=== PATIENT | male | born 1960 | race Caucasian/White ===

== ENCOUNTER → 2017-02-14 | Outpatient (REF) | payer OTHER, BC ==
[2017-02-14 13:16] LABS: BLOOD UREA NITROGEN 14 MG/DL (7-18); CREATININE FOR GFR 1.13 MG/DL (0.70-1.30); GLOMERULAR FILTRATION RATE > 60.0 (>56)
== END ==
LOC: M LABDRAW1 12:26
PROVIDERS: ATTEND Orthopaedic Surgery
DX: Z79.899 Other long term (current) drug therapy (principal)

== ENCOUNTER → 2017-08-19 | Outpatient (REF) | payer OTHER ==
[2017-08-19 15:41] LABS: BASO # 0.1 10^3/uL (0.0-0.2); BASO % 1.1 % (0.0-1.0); EOS # 0.2 10^3/uL (0.0-0.50); EOS % 2.9 % (0.0-3.0); IMMATURE GRANULOCYTE % 0.1 % (0-0); LYMPH # 1.9 10^3/uL (1.5-4.5); LYMPH % 24.5 % (24.0-44.0); MEAN CORPUSCULAR HEMOGLOBIN 28.3 pg (27.0-33.0); MEAN CORPUSCULAR HGB CONC 34.8 g/dl (32.0-36.5); MEAN CORPUSCULAR VOLUME 81.4 fl (80.0-96.0); MONO # 0.5 10^3/uL (0.0-0.8); MONO % 6.7 % (0.0-5.0); NEUTROPHILS # 5.1 10^3/uL (1.8-7.7); NEUTROPHILS % 64.7 % (36.0-66.0); PLATELET COUNT, AUTOMATED 262 10^3/uL (150-450); RED CELL DISTRIBUTION WIDTH 13.7 % (11.5-14.5); WHITE BLOOD COUNT 7.9 10^3/uL (4.0-10.0)
[2017-08-19 15:59] LABS: ALBUMIN 3.7 GM/DL (3.2-5.2); ALBUMIN/GLOBULIN RATIO 1.19 (1.00-1.93); ALKALINE PHOSPHATASE 98 U/L (45-117); ALT/SGPT 38 U/L (12-78); ANION GAP 8 MEQ/L (8-16); AST/SGOT 18 U/L (7-37); BILIRUBIN,TOTAL 0.4 MG/DL (0.2-1.0); BLOOD UREA NITROGEN 16 MG/DL (7-18); CALCIUM LEVEL 8.1 MG/DL (8.5-10.1); CARBON DIOXIDE LEVEL 27 MEQ/L (21-32); CHLORIDE LEVEL 109 MEQ/L (98-107); CREATININE FOR GFR 0.98 MG/DL (0.70-1.30); GLOMERULAR FILTRATION RATE > 60.0 (>56); GLUCOSE, FASTING 113 MG/DL (70-105); POTASSIUM SERUM 3.7 MEQ/L (3.5-5.1); SODIUM LEVEL 144 MEQ/L (136-145); TOTAL PROTEIN 6.8 GM/DL (6.4-8.2)
== END ==
LOC: M LABDRAW1 15:28
DX: M18.9 Osteoarthritis of first carpometacarpal joint, unspecified (principal)

== ENCOUNTER 2018-06-23 13:49 | Day surgery (SDC) | payer BC ==
[~2018-06-23 13:49] MED LIST: LIDOCAINE 2% INJ 100 MG/5 ML SDV (FOR ANES.) As Ordered; PROPOFOL 200 MG/20 ML VIAL As Ordered
[2018-06-23] MEDS: NS 1,000 ML IV (15:00)
[2018-06-23] MEDS ORDERED: fentaNYL 100 MCG/2 ML INJECTION (J3010) As Ordered (16:18)
== END 2018-06-23 17:08 | disposition home or self-care (01) ==
LOC: M OPP 13:49
DX: K22.2 Esophageal obstruction (principal); R13.10 Dysphagia, unspecified; R12 Heartburn; I10 Essential (primary) hypertension; K21.9 Gastro-esophageal reflux disease without esophagitis; M54.5 Low back pain; N42.9 Disorder of prostate, unspecified; Z79.899 Other long term (current) drug therapy; Z88.0 Allergy status to penicillin
CPT/HCPCS: 43249

== ENCOUNTER 2021-11-04 12:33 | Day surgery (SDC) | payer BC ==
[~2021-11-04] VITALS: Ht 175.3 cm; Wt 80.5 kg
[~2021-11-04 12:33] MED LIST changes: -LIDOCAINE 2% INJ 100 MG/5 ML SDV (FOR ANES.) As Ordered; +MELO15TA28 PO; +PRIL20TA2 PO; -PROPOFOL 200 MG/20 ML VIAL As Ordered
[2021-11-04] MEDS ORDERED: GLUCAGON INJ 1MG VIAL IV STA (16:01)
[2021-11-04] MEDS ORDERED: NS 1,000 ML IV SCH (17:45)
[2021-11-04] MEDS: NS 1,000 ML IV SCH ×2 (18:00→18:29)
[2021-11-04] MEDS ORDERED: SILD20TA11 PO (18:23)
[2021-11-04] MEDS ORDERED: HOME MED LIST COMPLETE! XX SCH (18:25)
[2021-11-04 18:50] LABS: BASO # 0.1 10^3/uL (0.0-0.2); BASO % 0.9 % (0.0-1.0); EOS # 0.2 10^3/uL (0.0-0.5); EOS % 1.7 % (0.0-3.0); HEMATOCRIT 45.8 % (42.0-52.0); HEMOGLOBIN 15.9 g/dl (13.5-17.5); LYMPH # 1.3 10^3/uL (1.5-5.0); LYMPH % 11.5 % (24.0-44.0); MEAN CORPUSCULAR HEMOGLOBIN 28.3 pg (27.0-33.0); MEAN CORPUSCULAR HGB CONC 34.7 g/dl (32.0-36.5); MEAN CORPUSCULAR VOLUME 81.6 fl (80.0-96.0); MONO # 0.5 10^3/uL (0.0-0.8); MONO % 4.4 % (2.0-8.0); NEUTROPHILS # 9.1 10^3/uL (1.5-8.5); NEUTROPHILS % 81.1 % (36.0-66.0); PLATELET COUNT, AUTOMATED 273 10^3/uL (150-450); RED BLOOD COUNT 5.61 10^6/uL (4.30-6.10); WHITE BLOOD COUNT 11.2 10^3/uL (4.0-10.0)
[2021-11-04 19:11] LABS: ALBUMIN 3.8 GM/DL (3.2-5.2); ALT/SGPT 38 U/L (12-78); BILIRUBIN,TOTAL 1.3 MG/DL (0.2-1.0); BLOOD UREA NITROGEN 20 MG/DL (7-18); CALCIUM LEVEL 9.2 MG/DL (8.8-10.2); CARBON DIOXIDE LEVEL 27 MEQ/L (21-32); CHLORIDE LEVEL 111 MEQ/L (98-107); CREATININE FOR GFR 0.96 MG/DL (0.70-1.30); GLOMERULAR FILTRATION RATE > 60.0 (>49); GLUCOSE, FASTING 78 MG/DL (70-100); SODIUM LEVEL 144 MEQ/L (136-145); TOTAL PROTEIN 6.9 GM/DL (6.4-8.2)
[2021-11-04] MEDS ORDERED: MIDAZOLAM INJ 2MG/2ML VIAL (J2250 PER 1MG) As Ordered ONE (20:04)
[2021-11-04] MEDS ORDERED: propofoL 200 MG/20 ML VIAL As Ordered ONE (20:04)
[2021-11-04] MEDS ORDERED: fentaNYL 100 MCG/2 ML INJECTION As Ordered ONE (20:04)
[2021-11-04] MEDS ORDERED: SUCCINYLCHOLINE 100 MG/5 ML SYRINGE (J0330) As Ordered ONE (20:04)
[2021-11-04] MEDS ORDERED: LIDOCAINE 2% 100MG/5ML SDV (FOR ANES.) As Ordered ONE (20:04)
[2021-11-04] MEDS ORDERED: dexameTHASONE 4 MG/ML 1ML VIAL (J1100 PER 1MG) As Ordered ONE (20:04)
[2021-11-04] MEDS ORDERED: ONDANSETRON 4MG/2ML VIAL As Ordered ONE (20:04)
[2021-11-04] MEDS ORDERED: ROCURONIUM BROMIDE 50 MG/5 ML VIAL As Ordered ONE (20:06)
[2021-11-04] MEDS ORDERED: oxyCODONE 5MG TAB PO PRN (21:30)
[2021-11-04] MEDS ORDERED: HYDROMORPHONE HCL 0.5 MG/ 0.5 ML SYRINGE (J1170 PER 1) IV PRN (21:30)
[2021-11-04] MEDS ORDERED: fentaNYL 100 MCG/2 ML INJECTION IV PRN (21:30)
[2021-11-04] MEDS ORDERED: LR 1,000 ML IV SCH (21:30)
[2021-11-04] MEDS ORDERED: ONDANSETRON 4MG/2ML VIAL IV PRN (21:30)
[2021-11-04 22:00] VITALS: BP 157/94
[2021-11-05] MEDS ORDERED: PANTOPRAZOLE 40MG VIAL (C9113 PER 1) IV SCH (09:00)
== END 2021-11-04 22:10 | disposition home or self-care (01) ==
LOC: M ED 12:33 → M SDC 12:34
PROVIDERS: ATTEND Surgery
DX: T18.128A Food in esophagus causing other injury, initial encounter (principal); Y92.098 Other place in other non-institutional residence as the place of occurrence of the external cause; K22.2 Esophageal obstruction; Z88.0 Allergy status to penicillin; Z79.899 Other long term (current) drug therapy
CPT/HCPCS: 43200; 80053; 85025; 87426; 96374; 99284; J0330; J1100; J1610; J2250; J2405; J3010

== ENCOUNTER → 2021-12-12 | Outpatient (CLI) | payer BC ==
[~2021-12-12] MED LIST changes: +SILD20TA11 PO
== END ==
LOC: M LABSMTC 11:03
PROVIDERS: ATTEND Anesthesiology
DX: Z01.812 Encounter for preprocedural laboratory examination (principal); Z20.822 Contact with and (suspected) exposure to COVID-19

== ENCOUNTER 2021-12-17 11:07 | Day surgery (SDC) | payer BC ==
[~2021-12-17] VITALS: Ht 175.3 cm; Wt 78.7 kg
[~2021-12-17 11:07] MED LIST changes: +NS 1,000 ML IV ONE
[2021-12-17] MEDS ORDERED: fentaNYL 100 MCG/2 ML INJECTION As Ordered ONE (13:13)
[2021-12-17] MEDS ORDERED: propofoL 200 MG/20 ML VIAL As Ordered ONE ×2 (13:24→13:29)
[2021-12-17 13:36] VITALS: BP 132/67
== END 2021-12-17 13:56 | disposition home or self-care (01) ==
LOC: M OPP 11:07
PROVIDERS: ATTEND Internal Medicine Gastroenterology
DX: K22.89 Other specified disease of esophagus (principal); K22.2 Esophageal obstruction; R10.13 Epigastric pain; T18.108S Unspecified foreign body in esophagus causing other injury, sequela; Z80.0 Family history of malignant neoplasm of digestive organs; Z80.3 Family history of malignant neoplasm of breast
CPT/HCPCS: 43239; 43249; 88305; J3010

== ENCOUNTER → 2022-05-21 | Outpatient (CLI) | payer BC ==
[~2022-05-21] MED LIST changes: -NS 1,000 ML IV ONE
== END ==
LOC: M WUC 11:40
PROVIDERS: ATTEND Urology
DX: R97.20 Elevated prostate specific antigen [PSA] (principal)

== ENCOUNTER 2022-08-22 21:57 | Emergency (ER) | payer BC ==
[~2022-08-22] VITALS: Ht 175.3 cm; Wt 82.2 kg
[2022-08-23] MEDS ORDERED: LIDOCAINE 1% SDV 5ML VIAL DILUENT ONE (01:25)
[2022-08-23] MEDS ORDERED: cefTRIAXone SOD 2GM VIAL IM ONE (01:25)
[2022-08-23] MEDS ORDERED: BOOSTRIX/ADACEL VACCINE (DIPHTH/PERTUSS/ACELL/TETANUS) 0.5ML SYR IM ONE (01:25)
[2022-08-23] MEDS ORDERED: CEPH500C PO (01:56)
[2022-08-23 02:43] VITALS: BP 172/83
== END 2022-08-23 02:59 | disposition home or self-care (01) ==
LOC: M ED 21:57
DX: S61.001A Unspecified open wound of right thumb without damage to nail, initial encounter (principal); W26.8XXA Contact with other sharp object(s), not elsewhere classified, initial encounter; Y92.099 Unspecified place in other non-institutional residence as the place of occurrence of the external cause; I10 Essential (primary) hypertension; Z79.899 Other long term (current) drug therapy; Z88.0 Allergy status to penicillin

== ENCOUNTER → 2022-10-06 | Outpatient (CLI) | payer BC ==
[~2022-10-06] MED LIST changes: +CEPH500C PO
== END ==
LOC: M WUC 09:52
PROVIDERS: ATTEND Internal Medicine
DX: R06.00 Dyspnea, unspecified (principal)

== ENCOUNTER → 2023-04-06 | Outpatient (REF) | payer BC | LOC: M LABWUC 16:18 | PROVIDERS: ATTEND Internal Medicine Pulmonary Disease | DX: R97.20 Elevated prostate specific antigen [PSA] (principal) ==

== ENCOUNTER → 2023-04-25 | Outpatient (CLI) | payer MEDICARE | LOC: M LAB 11:38 | PROVIDERS: ATTEND Urology | DX: R97.20 Elevated prostate specific antigen [PSA] (principal) ==

== ENCOUNTER 2023-06-03 09:49 | Day surgery (SDC) | payer MEDICARE ==
[~2023-06-03] VITALS: Ht 175.3 cm; Wt 84.1 kg
[~2023-06-03 09:49] MED LIST changes: +NS 1,000 ML IV ONE
[2023-06-03 11:00] VITALS: TEMP 97.8
[2023-06-03 11:15] VITALS: BP 107/52; O2SAT 97
== END 2023-06-03 11:28 | disposition home or self-care (01) ==
LOC: M OPP 09:49
PROVIDERS: ATTEND Internal Medicine Gastroenterology
DX: Z12.11 Encounter for screening for malignant neoplasm of colon (principal); D12.3 Benign neoplasm of transverse colon; D12.5 Benign neoplasm of sigmoid colon; K57.30 Diverticulosis of large intestine without perforation or abscess without bleeding; K64.8 Other hemorrhoids; Z79.1 Long term (current) use of non-steroidal anti-inflammatories (NSAID); Z79.83 Long term (current) use of bisphosphonates; Z79.899 Other long term (current) drug therapy; Z88.0 Allergy status to penicillin

== ENCOUNTER → 2024-01-06 | Outpatient (CLI) | payer MEDICARE ==
[~2024-01-06] MED LIST changes: -NS 1,000 ML IV ONE
[2024-01-08 16:08] LABS: PSA % FREE 19.3 % (.); PSA FREE 1.1 ng/mL; PSA TOTAL 5.7 ng/mL (0.0-4.0)
== END ==
LOC: M LAB 11:07
PROVIDERS: ATTEND Nurse Practitioner Adult Health
DX: R97.20 Elevated prostate specific antigen [PSA] (principal)

== ENCOUNTER → 2024-10-17 | Outpatient (CLI) | payer MEDICARE | LOC: M LAB 10:53 | PROVIDERS: ATTEND Nurse Practitioner Adult Health | DX: R97.20 Elevated prostate specific antigen [PSA] (principal); Z12.5 Encounter for screening for malignant neoplasm of prostate | CPT/HCPCS: 36415; G0103 ==

== ENCOUNTER → 2024-11-30 | Outpatient (REF) | payer MEDICARE ==
[2024-11-30 13:08] LABS: FOLATE 15.3 NG/ML (>5.4)
== END ==
LOC: M LAB REF 12:12
PROVIDERS: ATTEND Internal Medicine
DX: G31.84 Mild cognitive impairment of uncertain or unknown etiology (principal)

== ENCOUNTER → 2024-12-24 | Outpatient (CLI) | payer MEDICARE ==
[2024-12-24 12:39] LABS: BLOOD UREA NITROGEN 13 MG/DL (9-23); CREATININE FOR GFR 0.88 MG/DL (0.70-1.30); GLOMERULAR FILTRATION RATE > 90.0 (>49)
== END ==
LOC: M LAB 11:30
PROVIDERS: ATTEND Urology
DX: R97.20 Elevated prostate specific antigen [PSA] (principal); R35.1 Nocturia; N40.1 Benign prostatic hyperplasia with lower urinary tract symptoms

== ENCOUNTER → 2025-05-01 | Outpatient (CLI) | payer MEDICARE ==
[~2025-05-01] MED LIST changes: -SILD20TA11 PO; +SILD20TA64 PO
== END ==
LOC: M LAB 10:24
PROVIDERS: ATTEND Urology
DX: R97.20 Elevated prostate specific antigen [PSA] (principal)